=== PATIENT | female | born 1975 | race Caucasian/White ===

== ENCOUNTER 2018-03-24 07:46 | Day surgery (SDC) | payer BC ==
[~2018-03-24] VITALS: Ht 182.9 cm; Wt 83.9 kg
[~2018-03-24 07:46] MED LIST: PRISTIQ50 MG PO; SYNTHROID75 MCG PO
[2018-03-24 08:30] VITALS: BP 134/87
[2018-03-24 12:40] VITALS: BP 136/82
[2018-03-24 16:10] LABS: HEMATOCRIT 37.5 % (36.0-46.0); MCH 29.3 PG (29.0-34.0); MCV 91.5 FL (83-99); PLATELET COUNT 220 K/uL (156-360); RBC DIS.WIDTH-CV 13.1 % (11.8-14.6); RBC DIS.WIDTH-SD 43.5 % (39-53)
[2018-03-24 16:32] LABS: CHLORIDE 105 MEQ/L (99-109); CREATININE 0.7 MG/DL (0.6-1.3); GFR ESTIMATE (CALCULATED) > 59 mL/min/; GLUCOSE 146 mg/dL (70-99); POTASSIUM 3.9 MEQ/L (3.7-5.4); SODIUM 137 MEQ/L (136-147); UREA NITROGEN (BUN) 8 mg/dL (9-23)
[2018-03-24 18:10] VITALS: BP 130/79
[2018-03-24 20:00] VITALS: BP 139/82
[2018-03-25 00:34] VITALS: BP 112/74
[2018-03-25 03:43] VITALS: BP 137/68
[2018-03-25 06:56] LABS: HEMOGLOBIN 11.6 G/DL (11.9-15.5); MCH 29.9 PG (29.0-34.0); MCHC 32.2 G/DL (30.0-36.0); MCV 92.8 FL (83-99); PLATELET COUNT 218 K/uL (156-360); RBC DIS.WIDTH-CV 13.2 % (11.8-14.6); RBC DIS.WIDTH-SD 45.2 % (39-53); RED BLOOD COUNT 3.88 M/uL (3.80-5.20); WHITE BLOOD COUNT 7.3 K/uL (4.1-10.2)
[2018-03-25 07:18] LABS: CHLORIDE 103 MEQ/L (99-109); CREATININE 0.8 MG/DL (0.6-1.3); GFR ESTIMATE (CALCULATED) > 59 mL/min/; GLUCOSE 119 mg/dL (70-99); POTASSIUM 3.8 MEQ/L (3.7-5.4); SODIUM 139 MEQ/L (136-147); UREA NITROGEN (BUN) 4 mg/dL (9-23)
[2018-03-25 07:28] VITALS: BP 126/74
[2018-03-25] MEDS ORDERED: PERCOCET 5/31 TABLET PO (22:47)
[2018-03-25] MEDS ORDERED: MIRALAX255 GM PO (22:48)
== END 2018-03-25 09:36 | disposition home or self-care (01) ==
LOC: SDC 07:46 → 2EAST 11:06 → ENRESERV 11:46 → SDC 12:45 → 2EAST 03-25 09:36
PROVIDERS: Obstetrics & Gynecology Gynecologic Oncology
PROC: 0UT97ZZ Resection of Uterus, Via Natural or Artificial Opening (ICD-10-PCS; principal; 2018-03-24)
PROC: 8E0UXY7 Examination of Female Reproductive System (ICD-10-PCS; principal; 2018-03-24)
DX: N93.8 Other specified abnormal uterine and vaginal bleeding (principal); D25.9 Leiomyoma of uterus, unspecified; N72 Inflammatory disease of cervix uteri; N80.0 Endometriosis of uterus; Z87.891 Personal history of nicotine dependence; Z80.3 Family history of malignant neoplasm of breast; Z80.0 Family history of malignant neoplasm of digestive organs; Z80.49 Family history of malignant neoplasm of other genital organs
CPT/HCPCS: 80048; 85027; 88307; G0378; J0131; J0171; J0690; J1100; J1170; J2250; J2405; J2550; J2710; J3010; J7643

== ENCOUNTER 2018-03-25 17:32 | Emergency (ER) | payer BC ==
[~2018-03-25] VITALS: Ht 182.9 cm; Wt 86.8 kg
[2018-03-25 18:22] LABS: HEMATOCRIT 38.4 % (36.0-46.0); HEMOGLOBIN 12.5 G/DL (11.9-15.5); MCHC 32.6 G/DL (30.0-36.0); MCV 92.3 FL (83-99); PLATELET COUNT 220 K/uL (156-360); RBC DIS.WIDTH-CV 13.3 % (11.8-14.6); RBC DIS.WIDTH-SD 45.4 % (39-53); RED BLOOD COUNT 4.16 M/uL (3.80-5.20); WHITE BLOOD COUNT 6.6 K/uL (4.1-10.2)
[2018-03-25 18:33] LABS: CHLORIDE 106 mEq/L (99-109); POTASSIUM 3.7 mEq/L (3.7-5.4); SODIUM 143 mEq/L (136-147)
[2018-03-25 18:36] LABS: GLUCOSE 105 mg/dL (70-99); TOTAL PROTEIN 6.8 g/dL (6.4-8.3)
[2018-03-25 18:38] LABS: TOTAL BILIRUBIN 0.5 mg/dL (0.0-1.0)
[2018-03-25 18:39] LABS: ALKALINE PHOSPHATASE 43 IU/L (3-129); CREATININE 0.8 mg/dL (0.6-1.3); GFR ESTIMATE (CALCULATED) > 59 mL/min/
[2018-03-25 18:40] LABS: UREA NITROGEN (BUN) 3 mg/dL (9-23)
[2018-03-25 18:41] LABS: AST (GOT) 13 IU/L (2-34)
[2018-03-25 18:42] LABS: ALT (GPT) 11 IU/L (3-49)
[2018-03-25 18:42] LABS: APPEARANCE CLEAR ((CLEAR)); BILIRUBIN NEGATIVE; BLOOD LARGE; COLOR YELLOW ((YELLOW)); GLUCOSE (STRIP) NEGATIVE; KETONES 5; LEUKOCYTES SMALL; NITRITE NEGATIVE; PROTEIN (STRIP) NEGATIVE; SPECIFIC GRAVITY 1.012 (1.000-1.030); UROBILINOGEN 0.2 MG/DL (0.2-1.0)
[2018-03-25 18:51] LABS: QUANTITATIVE HCG < 4.0 MIU/ML
[2018-03-25 18:51] LABS: BACTERIA RARE /HPF; EPITHELIAL CELLS 2+ /HPF; MUCUS TRACE /LPF; RED BLOOD CELLS TNTC /HPF (0-5); UCUL ADDED? YES
[2018-03-25] MEDS ORDERED: PERCOCET 5/31 TABLET PO (22:47)
[2018-03-25] MEDS ORDERED: MIRALAX255 GM PO (22:48)
[2018-03-25 23:10] VITALS: BP 115/78
== END 2018-03-25 23:05 | disposition home or self-care (01) ==
LOC: EME 17:32
DX: G89.18 Other acute postprocedural pain (principal); Z90.710 Acquired absence of both cervix and uterus; Z87.891 Personal history of nicotine dependence
CPT/HCPCS: 74177; 80053; 81003; 84702; 85027; 87086; 99281; 99285; J2405; J3010; J7030